=== PATIENT | male | born 1975 | race Caucasian/White ===

== ENCOUNTER 2018-05-02 23:28 | Emergency (ER) | payer OTHER ==
[~2018-05-02] VITALS: Ht 160 cm; Wt 99.8 kg
[2018-05-02] MEDS ORDERED: CALCIUM 500 +1 EAC2 PO (23:49)
[2018-05-02] MEDS ORDERED: CETIRIZINE HCL10 M1 PO (23:49)
[2018-05-02] MEDS ORDERED: METOPROLOL ER-1 EACH PO (23:50)
[2018-05-02] MEDS ORDERED: STOOL SOFTENER250 MG PO (23:50)
--- NOTE | 2018-05-03 08:09 | EKG ---
[facility] [address] [facility] [place] [address] Signed Poor data quality, interpretation may be adversely affected Normal sinus rhythm Septal infarct , age undetermined Abnormal ECG No previous ECGs available Confirmed by PALMER LEA MD ([id number]) on 05/03/2018 8:09:11 AM Electronically Signed By: PALMER LEA MD 05/03/18808 PATIENT NAME: SAIRA SEGURA Electrocardiogram DATE OF : 77 PHYSICIAN: PALMER LEA MD REPORT #: [id number] REPORT IS CONFIDENTIAL AND NOT TO BE RELEASED WITHOUT AUTHORIZATION
== END 2018-05-03 06:27 | disposition home or self-care (01) ==
LOC: ED 23:28
DX: T39.012A Poisoning by aspirin, intentional self-harm, initial encounter (principal); Z88.0 Allergy status to penicillin; Z79.899 Other long term (current) drug therapy
CPT/HCPCS: 80053; 80176; 81001; 85025; 93005; 93010; 96374; 99283; G0480; J2405

== ENCOUNTER 2018-06-06 23:08 | Emergency (ER) | payer OTHER ==
[~2018-06-06] VITALS: Ht 160 cm; Wt 99.8 kg
[~2018-06-06 23:08] MED LIST: CALCIUM 500 +1 EAC2 PO; CETIRIZINE HCL10 M1 PO; STOOL SOFTENER250 MG PO; TOPROL XL25 MG PO
[2018-06-06] MEDS ORDERED: OMEPRAZOLE20 MG PO (23:22)
[2018-06-06] MEDS ORDERED: NAPROXEN500 MG PO (23:22)
[2018-06-06] MEDS ORDERED: CHLORHEXIDINE118 ML TOP (23:23)
[2018-06-06] MEDS ORDERED: BACTRIM DS TAB1 EACH PO (23:26)
[2018-06-06] MEDS ORDERED: VENTOLIN HFA18 GM INH (23:27)
[2018-06-06] MEDS ORDERED: DOXEPIN HCL50 MG PO (23:28)
--- NOTE | 2018-06-07 20:47 | EKG ---
[facility] [address] [facility] [place] [address] Signed Normal sinus rhythm Normal ECG When compared with ECG of 02-MAY-2018 23:39, Criteria for Septal infarct are no longer present Confirmed by FAM MACHADO DO ([id number]) on 06/07/2018 8:46:58 PM Electronically Signed By: FAM MACHADO DO 06/07/187 PATIENT NAME: SAIRA SEGURA Electrocardiogram DATE OF : 77 PHYSICIAN: FAM MACHADO DO REPORT #: [id number] REPORT IS CONFIDENTIAL AND NOT TO BE RELEASED WITHOUT AUTHORIZATION
== END 2018-06-07 01:04 | disposition home or self-care (01) ==
LOC: ED 23:08
DX: R07.89 Other chest pain (principal); I10 Essential (primary) hypertension; Z87.891 Personal history of nicotine dependence; Z79.899 Other long term (current) drug therapy
CPT/HCPCS: 71045; 80053; 84484; 85025; 93005; 93010; 96374; 99285; J1885; J7030

== ENCOUNTER 2019-02-27 12:04 | Emergency (ER) | payer OTHER ==
[~2019-02-27] VITALS: Ht 157.5 cm; Wt 83.9 kg
[~2019-02-27 12:04] MED LIST changes: +BACTRIM DS TAB1 EACH PO; +CHLORHEXIDINE118 ML TOP; +DOXEPIN HCL50 MG PO; +NAPROXEN500 MG PO; +OMEPRAZOLE20 MG PO; +VENTOLIN HFA18 GM INH
[2019-02-27] MEDS ORDERED: CONSTULOSE10 GM/15 M PO (15:58)
== END 2019-02-27 19:18 | disposition home or self-care (01) ==
LOC: ED 12:04
DX: T18.9XXA Foreign body of alimentary tract, part unspecified, initial encounter (principal); K59.00 Constipation, unspecified; I10 Essential (primary) hypertension; Z88.0 Allergy status to penicillin; Z79.899 Other long term (current) drug therapy; Z85.118 Personal history of other malignant neoplasm of bronchus and lung
CPT/HCPCS: 70491; 74022; 80053; 85025; 99284-25; Q9967

== ENCOUNTER 2019-07-09 15:08 | Emergency (ER) | payer OTHER ==
[~2019-07-09] VITALS: Ht 157.5 cm; Wt 83.9 kg
[~2019-07-09 15:08] MED LIST changes: +CONSTULOSE10 GM/15 M PO
[2019-07-09] MEDS ORDERED: NATURAL FIBER PO (15:37)
[2019-07-09] MEDS ORDERED: SALINE NASAL SP88 ML (15:38)
[2019-07-09] MEDS ORDERED: NEOSPORIN OIN28.3 GM TOP (15:39)
[2019-07-09] MEDS ORDERED: BENZTROPINE MESY1 MG PO (15:40)
[2019-07-09] MEDS ORDERED: NORCO 5-325 TA1 EACH PO (15:41)
[2019-07-09] MEDS ORDERED: OLANZAPINE5 MG PO (15:43)
[2019-07-09] MEDS ORDERED: PAROXETINE HCL20 MG PO (15:44)
[2019-07-09] MEDS ORDERED: TRAZODONE HCL50 MG PO (15:44)
--- NOTE | 2019-07-10 15:55 | EKG ---
[facility] [address] [facility] [place] [address] Signed Normal sinus rhythm Low voltage QRS Borderline ECG When compared with ECG of 06-JUN-2018 23:10, No significant change was found Confirmed by FAM MACHAOD DO ([id number]) on 07/10/2019 3:55:03 PM Electronically Signed By: FAM MACHADO DO 07/10/19 1555 PATIENT NAME: SAIRA SEGURA Electrocardiogram DATE OF : 77 PHYSICIAN: FAM MACHADO DO REPORT #: [id number] REPORT IS CONFIDENTIAL AND NOT TO BE RELEASED WITHOUT AUTHORIZATION
== END 2019-07-09 18:23 | disposition home or self-care (01) ==
LOC: ED 15:08
DX: T39.311A Poisoning by propionic acid derivatives, accidental (unintentional), initial encounter (principal); I10 Essential (primary) hypertension; Z88.0 Allergy status to penicillin; Z79.899 Other long term (current) drug therapy; Z85.118 Personal history of other malignant neoplasm of bronchus and lung
CPT/HCPCS: 80053; 80176; 81001; 84443; 85025; 93005; 93010; 96361; 96374; 99284-25; C9113; G0480; J7030